=== PATIENT | female | born 2000 | race African-American/Black ===

== ENCOUNTER → 2023-05-09 08:30 | Outpatient (BNV) | payer BC, SELFPAY | PROVIDERS: Visit Provider Psychiatry & Neurology Psychiatry | DX: F43.11 Post-traumatic stress disorder, acute (principal); F39 Unspecified mood [affective] disorder; F90.9 Attention-deficit hyperactivity disorder, unspecified type; F10.11 Alcohol abuse, in remission; Z86.59 Personal history of other mental and behavioral disorders | CPT/HCPCS: 90792; 99213; 99214 ==

== ENCOUNTER 2023-05-18 14:05 | Outpatient (REF) | payer BC, SELFPAY ==
[2023-05-18 14:22] LABS: MANUAL DIFF FLAG NO
[2023-05-18 14:33] LABS: Basophils Absolute Auto 0.1 X10*3/uL (0.0-0.2); Basophils Percent Auto 0.9 % (0-2); Eosinophils Absolute Auto 0.2 X10*3/uL (0.0-0.4); Eosinophils Percent Auto 2.3 % (0-4); Hematocrit 37.6 % (37.0-47.0); Hemoglobin 12.4 g/dl (12.0-16.0); Imm Gran Abs Auto 0.03 X10*3/uL (0.00-0.03); Imm Gran Pct Auto 0.4 % (0.0-0.4); Lymphocytes Absolute Auto 2.2 X10*3/uL (1.2-4.9); Lymphocytes Percent Auto 27.8 % (20-40); Mean Corpuscular Hemoglobin 29.2 pg (27.0-33.0); Mean Corpuscular Volume 88.5 fL (80.0-98.0); Mean Platelet Volume 10.4 fL (9.4-12.3); Monocytes Absolute Auto 0.6 X10*3/uL (0.1-1.2); Neutrophils Absolute Auto 4.9 x10*3/uL (2.0-8.3); Neutrophils Percent Auto 61.6 % (45-73); Platelet Count 289 X10*3/uL (160-400); Red Blood Count 4.25 X10*6/uL (4.20-5.50)
[2023-05-18 15:14] LABS: Alanine Aminotransferase 18 U/L (0-31); Albumin Level 4.6 g/dL (3.5-5.0); Alkaline Phosphatase 57 U/L (39-117); Anion Gap 11 (12-20); Aspartate Amino Transferase 20 U/L (5-31); Bilirubin Total 0.5 mg/dL (0.0-1.0); Blood Urea Nitrogen 9 mg/dL (9-16); Calcium 9.3 mg/dL (8.4-10.2); Carbon Dioxide 28 mmol/L (22-29); Chloride 105 mmol/L (96-108); Cholesterol 166 mg/dL (<200); Estimated Glomerular Filt Rate > 60; Glucose Random 86 mg/dL (60-115); HDL Cholesterol 88 mg/dL (>40); LDL Cholesterol Calculated 72 mg/dL (<100); Potassium 3.9 mmol/L (3.3-5.1); Sodium 140 mmol/L (135-145); Triglycerides 34 mg/dL (<150)
[2023-05-18 15:30] LABS: Thyroid Stimulating Hormone 0.49 uIU/mL (0.32-4.0)
[2023-05-18 15:30] LABS: UPreg QC Valid YES; Urine Pregnancy NEGATIVE (NEGATIVE)
[2023-05-19 01:40] LABS: CT PCR NOT DETECTED (Not Detect.); NG PCR NOT DETECTED (Not Detect.)
[2023-05-20 08:54] LABS: Syphilis Screen Nonreactive (Nonreactive)
[2023-05-20 09:09] LABS: HBsAGNum1 0.24 S/CO (0.00-0.99); HIV AB/AG Nonreactive (Nonreactive); HIV Num 1 0.04 S/CO (0.00-0.99); Hepatitis B Core Antibody Nonreactive (Nonreactive); Hepatitis B Surface Antigen Negative (Negative); ~HepC Num1 0.11 S/CO (0.00-0.79); ~Hepatitis B Surface Antibody NONREACTIVE (Nonreactive); ~Hepatitis C Antibody Nonreactive (Nonreactive)
== END 2023-05-18 14:06 | disposition home or self-care (01) ==
LOC: HO.LAB 14:05
PROVIDERS: Visit Provider Psychiatry & Neurology Psychiatry
DX: Z11.4 Encounter for screening for human immunodeficiency virus [HIV] (principal); F39 Unspecified mood [affective] disorder; Z20.2 Contact with and (suspected) exposure to infections with a predominantly sexual mode of transmission
CPT/HCPCS: 0353U; 80053; 80061; 81025; 84443; 85025; 86704; 86706; 86780; 86803; 87340; 87389

== ENCOUNTER 2023-05-24 08:45 | Outpatient (RCR) | payer BC, SELFPAY ==
[2023-05-08 11:49] VITALS: BMI 25.0
[2023-05-08 11:50] VITALS: BP 131/94; PULSE 63; TEMP 37.1
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
--- NOTE | 2023-05-09 13:42 | PC.NURSE ---
Sailaja stated she wants to get STD testing as a precaution as she had unprotected sex a month ago. She is asymptomatic. I recommended she call [facility] and make an appointment. She made an appointment in my office for Sunday05/21/23 at 4pm at [address] [place] [address].
--- NOTE | 2023-05-09 16:28 | HO.PHP ---
The client's case was reviewed and opened in treatment team.
--- NOTE | 2023-05-16 09:46 | P.PNPSP_ITS ---
Subjective Subjective Date of Service: 05/15/23 Reason For Visit: borderline personality d/o,depression,anxiety Interim History: Patient seen for follow-up. No acute issues or concerns. She has stared on Abilify. Has been taking it at night along with her prazosin. She reports sleep has improved, slept through the night without interruption until 7am (usually wakes q 2 hours). Mood is it's been okay , denies any hopelessness or SI. She denies any impulses or urges to self harm. Appetite is intact. No active EDB. Denies any cravings or plans to use alcohol. Last use was 2 weeks ago. She hasn't noticed any huge shifts in mood this week. Last week she was feeling down in the dumps and mood was unbearable . She has not been feeling this way for the past couple of days and has been able to stay distracted, keeping busy to avoid stressful thoughts or emotionally provoking memories. Still feeling anxious about stressors and feeling overwhelmed and not able to address these issues without getting emotional and distressed, but at least she feels these worries are less intrusive and is able to ignore them to some degree. She is expected back to work on Dec , she is hoping to stay in [facility] at least another week but would need a letter for work. Mental Status Exam Mental Status Exam Narrative: Alert, oriented, in no acute distress. Casually dressed. Hygiene good, grooming good. Normal gait, no psychomotor agitation or neurovegetative retardation. Calm, cooperative, forthcoming. Maintains appropriate eye contact. Mood anxious, less depressed. Affect mood congruent, reactive, brighter, no lability, irritability or tearfulness noted . Speech is normal, regular rate, rhythm, prosody. No latency or pressured speech. Thought process is circumstantial. Thought content relevant to stressors, no paranoid or delusional content elicited. No SI or HI on inquiry. No evidence of psychosis. Cognition grossly intact. Sensorium clear. Insight/judgment fair but adequate Diagnostics Vital Signs (24Hr): BMI result Body Mass Index 25.0 Assessment & Plan Assessment & Plan (1) Post-traumatic stress disorder, acute: Status: Acute Code(s): F43.11 - Post-traumatic stress disorder, acute (2) Mood disorder: Status: Acute Code(s): F39 - Unspecified mood [affective] disorder (3) Attention deficit hyperactivity disorder (ADHD): Qualifiers: Attention deficit-hyperactivity disorder type: unspecified Qualified Code(s): F90.9 - Attention-deficit hyperactivity disorder, unspecified type Status: Acute Code(s): F90.9 - Attention-deficit hyperactivity disorder, unspecified type Assessment and Plan: likely combined type (4) Alcohol abuse: Status: Acute Code(s): F10.10 - Alcohol abuse, uncomplicated Assessment and Plan: binging pattern, occasional - related to impulsivity and maladaptive coping; in early remission, no hx of physiological dependence Plan continue ABliify at 2 mg qHS, will titrate to effect as tolerated continue prazosin 1 mg qHS will plan to start lisdexamfetamine 10 mg qAM (max 3-4 days/wk), reviewed r/b/se, reviewed parameters - hold for mood/inadequate sleep; avoid alcohol or illicit substance use will plan to add prazosin 1 mg daily in AM on days Patient educated on: diagnosis, medication risk/benefits and substance abuse Informed Consent: understands Certification I certify that partial hospital treatment is medically necessary due to the symptoms and problems resulting from the patient's mental illness and the failure to treat the patient at the partial hospital level of care would likely result in the patient requiring inpatient psychiatric care which could not be prevented at a less intensive level of care. Total time managing care of this patient today __30__ minutes. Discharge Plan Discharge Attending provider: Haley Gonzalez Medications: New aripiprazole 2 mg tablet 2 mg PO BEDTIME 14 Days Qty: 14 0RF aripiprazole 5 mg tablet 5 mg PO DAILY Qty: 14 0RF Continued prazosin 1 mg Capsule 1 mg PO BEDTIME Patient Comments: Last dose a week ago. lisdexamfetamine 10 mg capsule 10 mg PO QAM Qty: 10 0RF Rx Instructions: Partial Fill upon patient request. Discontinued sertraline 100 mg tablet 100 mg PO DAILY Patient Comments: Last took a week ago. lamotrigine 25 mg tablet See Rx Instructions .ROUTE .COMPLEX Patient Comments: Last took a week ago. Rx Instructions: Take one tab daily x 2 weeks then increase to 2 tabs daily x 2 weeks then 100mg daily. bupropion HCl 150 mg tablet extended release 24 hr 150 mg PO QAM Patient Comments: Last dose a week ago. Patient stated using left over prescription. (Pharmacy stated on back order).
--- NOTE | 2023-05-21 08:23 | HO.PHP ---
Sailaja contacted [facility] to inform Emily that she will be running late to program. Sailaja was dysregulated and crying due to missing her bus and her mother making negative comments to her. Emily explored safety, in which she stated she feels like a failure. Emily informed her that she is not a failure and that it is okay if she is late to the program. Emily attempted to console her, encouraging her to take a deep breath. Sailaja voiced that she is trying to get a ride but the next bus isn't until 9:00 AM, placing her at the arrival time of 9:45 AM. Emily voiced that is fine and collected her lunch information. Emily encouraged Sailaja to call if she is unable to make it. Sailaja was receptive.
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
--- NOTE | 2023-05-22 12:39 | HO.PHP ---
Sailaja asked to meet with [facility] clinician after group two, in which she had noted that she was feeling triggered prior to the second group, so when we were discussing more triggers, it was making her anxious. Sailaja reported that she received a message from work stating that they want to talk about her returning to work and have a meeting prior. Sailaja asked the clinician if she feels they are going to fire her. PHP staff member disclosed that she is unaware what the meeting is in regards to and stated if she is concerned to reach out asking her workplace. Sailaja expressed that she has already reached out and they will be calling during lunch. PHP staff member was receptive. Sailaja was processing what it could be in regards to. PHP staff member expressed that it appears she is catastrophizing and thinking worse case scenario. Sailaja mentioned that is how her brain functions. PHP staff member encouraged her to try to think positively because it does appear they are talking about her returning to work. Sailaja was receptive and expressed feeling better after processing. PHP staff member was receptive. Sailaja was able to return to group.
--- NOTE | 2023-05-22 19:38 | P.PNPSP_ITS ---
Subjective Subjective Date of Service: 05/22/23 Reason For Visit: borderline personality d/o,depression,anxiety Interim History: Patient seen for follow-up today, In no acute distress or concerns. Sailaja has been unable to fill Vyvanse, as it is not available at her pharmacy or pharmacies in the area. I called and spoke with pharmacy today, Vyvanse (brand name or generic) continues to be unavailable in at any dose. Also Focalin XR is unavailable at any dose. Generic ADderall xr is available is 5 mg and 10 mg doses. They have variably been out of stock, but more available in the past months. I will send over script for XR (and IR to allow for some flexibility in dosing, cory if we want to move to 7.5/d). As previouslyreviewed risk/benefit/side effect of stimulants again reviewed including risk for tolerance and addiction, patient is aware. Patient agrees to avoid any concurren t alcohol or substance use and continues to avoid alcohol use. last use 3 weeks ago. PWe discussed establishing healthy habits and practices, good sleep hygiene to improve outcome with stimulant treatment; patient agrees to avoid stimulant use unless she has had proper sleep, food intake, mood stable, anxiety well- managed. Patient agrees to utilize <4days a week. SHe denies any helplessness, hopelessness or SI. Mental Status Exam Mental Status Exam Narrative: Alert, oriented, in no acute distress. Casually dressed. Hygiene good, grooming good. Normal gait, no psychomotor agitation or neurovegetative retardation. Calm, cooperative, forthcoming. Maintains appropriate eye contact. Mood anxious, less depressed. Affect mood congruent, reactive, brighter, no lability, irritability or tearfulness noted . Speech is normal, regular rate, rhythm, prosody. No latency or pressured speech. Thought process is circumstantial. Thought content relevant to stressors, no paranoid or delusional content elicited. No SI or HI on inquiry. No evidence of psychosis. Cognition grossly intact. Sensorium clear. Insight/judgment fair but adequate Diagnostics Vital Signs (24Hr): BMI result Body Mass Index 25.0 Assessment & Plan Assessment & Plan (1) Post-traumatic stress disorder, acute: Status: Acute Code(s): F43.11 - Post-traumatic stress disorder, acute (2) Mood disorder: Status: Acute Code(s): F39 - Unspecified mood [affective] disorder (3) Attention deficit hyperactivity disorder (ADHD): Qualifiers: Attention deficit-hyperactivity disorder type: unspecified Qualified Code(s): F90.9 - Attention-deficit hyperactivity disorder, unspecified type Status: Acute Code(s): F90.9 - Attention-deficit hyperactivity disorder, unspecified type (4) Mild alcohol abuse in early remission: Status: Acute Code(s): F10.11 - Alcohol abuse, in remission Assessment and Plan: mild-mod, no physiological dependence Plan increase ABilify to 5 mg (may take 1/2 tablet tonight, then 1 tablet daily) once at 5 mg ABilify, start Adderall XR 5 mg qAM (Vyvanse was prefered but not available at local pharmacies) for increased effect, may titrate to 7.5 mg (XR 5 + IR 2.5) on AM continue to monitor Patient educated on: diagnosis, medication risk/benefits and substance abuse Informed Consent: understands Reason for contiued partial hosp. stay Substantial Risk for: inability to function, rapid decompensation and med/psych decompensation Certification I certify that partial hospital treatment is medically necessary due to the symptoms and problems resulting from the patient's mental illness and the failure to treat the patient at the partial hospital level of care would likely result in the patient requiring inpatient psychiatric care which could not be prevented at a less intensive level of care. Total time managing care of this patient today __30__ minutes. Discharge Plan Discharge Attending provider: Haley Gonzalez Medications: New aripiprazole 2 mg tablet 2 mg PO BEDTIME 14 Days Qty: 14 0RF aripiprazole 5 mg tablet 5 mg PO DAILY Qty: 14 0RF dextroamphetamine-amphetamine [Adderall XR] 5 mg capsule,extended release 24hr 5 mg PO QAM Qty: 30 0RF Rx Instructions: Partial Fill upon patient request. dextroamphetamine-amphetamine [Adderall] 5 mg tablet 2.5 - 5 mg PO DAILY PRN (Reason: as directed) Qty: 10 0RF Rx Instructions: Partial Fill upon patient request. Changed prazosin 1 mg Capsule 1 mg PO BID 15 Days Qty: 30 0RF Discontinued sertraline 100 mg tablet 100 mg PO DAILY Patient Comments: Last took a week ago. lamotrigine 25 mg tablet See Rx Instructions .ROUTE .COMPLEX Patient Comments: Last took a week ago. Rx Instructions: Take one tab daily x 2 weeks then increase to 2 tabs daily x 2 weeks then 100mg daily. bupropion HCl 150 mg tablet extended release 24 hr 150 mg PO QAM Patient Comments: Last dose a week ago. Patient stated using left over prescription. (Pharmacy stated on back order).
[2023-05-23 01:30] VITALS: BP 127/86; PULSE 133
--- NOTE | 2023-05-23 14:36 | PC.NURSE ---
Sailaja came to my office stating she is feeling jittery and her heart feels like it is racing. VS 127/86 P 133. Denied dizziness or any other symptoms. Asked if she ever felt like this before and she stated she feels jittery after drinking coffee and reports she had a large cup of coffee this morning. She reports she started Adderal xr this morning. She did not take Prazosin in the morning with Adderall dose as instructed and took the Prazosin at 11:45. Notified Dr Gonzalez who spoke to Sailaja on speaker phone in my office. She was instructed not to have caffeine products while taking the Adderall and to take her morning dose of Adderall with the Prazosin tomorrow morning and will check her vital signs when she comes to the program tomorrow.
[2023-05-24 10:22] VITALS: BP 136/87; PULSE 94
[2023-05-24 12:49] VITALS: BP 124/92; PULSE 98
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
== END 2023-05-24 23:59 | disposition home or self-care (01) ==
LOC: HO.PHPA 08:45
PROVIDERS: Visit Provider Psychiatry & Neurology Psychiatry
DX: F43.11 Post-traumatic stress disorder, acute (principal); F39 Unspecified mood [affective] disorder; F90.9 Attention-deficit hyperactivity disorder, unspecified type; F10.11 Alcohol abuse, in remission; Z91.51 Personal history of suicidal behavior; Z86.59 Personal history of other mental and behavioral disorders; Z79.899 Other long term (current) drug therapy
CPT/HCPCS: 90791; 90853